=== PATIENT | male | born 1940 | race Caucasian/White ===

== ENCOUNTER 2017-08-20 17:31 | Emergency (ER) | payer OTHER ==
[~2017-08-20] VITALS: Ht 170.2 cm; Wt 96.7 kg
[~2017-08-20 17:31] MED LIST: ADULT LOW DOSE81 M1 PO; ASPIR 8181 M1 PO; ASPIR-LOW81 MG PO; ASPIRIN81 M1 PO; Aspirin E.C. PO; BENZTROPINE ME0.5 MG PO; COGENTIN0.5 MG PO; COUMADIN2 MG PO; Coumadin,Jantoven PO; DITROPAN5 MG PO; FISH OIL 1,0001 EAC7 PO; FISH OIL CONC1 EACH PO; FLOMAX0.4 MG PO; FUROSEMIDE40 MG PO; GLIPIZIDE ER2.5 MG PO; GLUCOTROL XL2.5 MG PO; Glucotrol XL PO; LIPITOR80 MG; LIPITOR80 MG PO; LISINOPRIL5 MG PO; Lasix PO; Levaquin PO; Lipitor PO; Lopressor PO; METOPROLOL SUC100 MG PO; METOPROLOL TAR100 MG PO; PRINIVIL5 MG PO; Proventil,Ventolin H IH; SENNA8.6 M1 PO; SENNA8.6 MG PO; TOPROL XL100 MG PO; WARFARIN SODIUM2 MG PO; WARFARIN SODIUM3 MG PO; WARFARIN SODIUM4 MG PO; ZESTRIL,PRINIVIL5 MG PO; ZYPREXA10 MG PO; Zestril,Prinivil PO
[2017-08-20 18:29] LABS: INTER. NORMALIZED RATIO 2.1
[2017-08-20 19:10] LABS: BASOPHIL (%) 0.3 % (0-1); EOSINOPHIL (%) 1.4 % (0-5); EOSINOPHIL COUNT 0.1 K/uL (0-0.3); HEMATOCRIT 40.1 % (38.0-50.0); HEMOGLOBIN 13.5 G/DL (12.5-16.6); IMMATURE GRANULOCYTE (%) 0.6 % (0.0-0.7); LYMPHOCYTE (%) 17.3 % (15-42); LYMPHOCYTE COUNT 1.7 K/uL (1.0-2.8); MCH 29.5 PG (29.0-34.0); MCHC 33.7 G/DL (30.0-36.0); MCV 87.6 FL (86-99); MONOCYTE (%) 8.1 % (3-12); MONOCYTE COUNT 0.8 K/uL (0-0.8); NEUTROPHIL (%) 72.3 % (45-76); NEUTROPHIL COUNT 7.2 K/uL (1.8-6.4); PLATELET COUNT 139 K/uL (156-360); RBC DIS.WIDTH-CV 13.7 % (11.8-14.6); RBC DIS.WIDTH-SD 44.4 % (39-53); RED BLOOD COUNT 4.58 M/uL (4.00-5.50); WHITE BLOOD COUNT 9.9 K/uL (4.1-10.2)
[2017-08-20 19:19] LABS: CHLORIDE 99 mEq/L (99-109); POTASSIUM 4.4 mEq/L (3.7-5.4); SODIUM 133 mEq/L (136-147)
[2017-08-20 19:21] LABS: GLUCOSE 142 mg/dL (70-99); TOTAL PROTEIN 6.5 g/dL (6.4-8.3)
[2017-08-20 19:23] LABS: TOTAL BILIRUBIN 0.6 mg/dL (0.0-1.0)
[2017-08-20 19:25] LABS: ALKALINE PHOSPHATASE 72 IU/L (3-129); CREATININE 0.9 mg/dL (0.6-1.3); GFR ESTIMATE (CALCULATED) > 59 mL/min/ (58.99-99999)
[2017-08-20 19:26] LABS: UREA NITROGEN (BUN) 16 mg/dL (9-23)
[2017-08-20 19:27] LABS: AST (GOT) 18 IU/L (2-34)
[2017-08-20 19:28] LABS: ALT (GPT) 21 IU/L (3-49)
[2017-08-20] MEDS ORDERED: NORCO 5/3251 TABLET PO (21:20)
[2017-08-20 22:33] VITALS: BP 137/82
== END 2017-08-20 22:30 | disposition home or self-care (01) ==
LOC: EME → EDBD 17:31 → EME 22:30
PROVIDERS: Emergency Medicine
DX: S22.31XA Fracture of one rib, right side, initial encounter for closed fracture (principal); W18.2XXA Fall in (into) shower or empty bathtub, initial encounter; K80.20 Calculus of gallbladder without cholecystitis without obstruction; K57.30 Diverticulosis of large intestine without perforation or abscess without bleeding; M51.36 Other intervertebral disc degeneration, lumbar region; I10 Essential (primary) hypertension; E78.5 Hyperlipidemia, unspecified; I25.2 Old myocardial infarction; E11.9 Type 2 diabetes mellitus without complications; Z79.84 Long term (current) use of oral hypoglycemic drugs; Z79.82 Long term (current) use of aspirin; Z79.01 Long term (current) use of anticoagulants; Z95.1 Presence of aortocoronary bypass graft; Z87.891 Personal history of nicotine dependence
CPT/HCPCS: 70450; 71101; 74177; 80053; 85025; 85610; 99281; 99285

== ENCOUNTER → 2017-10-29 | Outpatient (CLI) | payer OTHER ==
[~2017-10-29] MED LIST changes: +NORCO 5/3251 TABLET PO
== END | disposition home or self-care (01) ==
DX: R13.12 Dysphagia, oropharyngeal phase (principal)
CPT/HCPCS: 92611 GN; G8996 GN; G8997 GN; G8998 GN